=== PATIENT | female | born 1975 | race Caucasian/White ===

== ENCOUNTER 2022-08-19 12:02 | Emergency (ER) | payer OTHER ==
[~2022-08-19] VITALS: Ht 160 cm; Wt 61.2 kg
== END 2022-08-19 16:48 | disposition home or self-care (01) ==
LOC: ER 12:02
DX: R42 Dizziness and giddiness (principal)

== ENCOUNTER 2024-03-09 03:32 | Emergency (ER) | payer OTHER ==
[~2024-03-09] VITALS: Ht 160 cm; Wt 59.0 kg
[2024-03-09] MEDS ORDERED: KETOROLAC TROMETHAMINE 60 MG VIAL IM STA (04:23)
[2024-03-09] MEDS ORDERED: DEXAMETHASONE SODIUM PHOSPHATE 4 MG/ML VIAL IM STA (04:24)
[2024-03-09] MEDS ORDERED: ACETAMINOPHEN WITH CODEINE 1 UDTAB TABLET PO STA (04:24)
[2024-03-09] MEDS ORDERED: KETOROLAC TROMETHAMINE 30 MG VIAL IV STA (04:41)
[2024-03-09] MEDS ORDERED: CIPROFLOXACIN IN 5 % DEXTROSE 400 MG/200 ML PIGGYBAG IV STA (04:42)
[2024-03-09] MEDS ORDERED: CIPROFLOXACIN IN 5 % DEXTROSE 400 MG/200 ML PIGGYBAG IV ONE (04:49)
[2024-03-09] MEDS ORDERED: KETOROLAC TROMETHAMINE 30 MG VIAL ONE (04:49)
[2024-03-09 05:09] LABS: HEMATOCRIT 37.1 % (36.0-45.00); HEMOGLOBIN 12.7 g/dL (12.0-15.00); MEAN CELL VOLUME 88.5 fL (80.00-100.00); MEAN CORPUSCULAR HEMOGLOBIN 30.2 pg (27.00-32.0); MEAN CORPUSCULAR HGB CONC 34.2 g/dl (32.0-36.0); PLATELET COUNT 280 K/uL (150-450); RED CELL DISTRIBUTION WIDTH 13.9 % (11.5-14.5)
[2024-03-09 05:21] LABS: URINE APPEARANCE Turbid; URINE BILIRRUBIN Negative (NEGATIVE); URINE BLOOD Small; URINE COLOR Yellow; URINE GLUCOSE Negative (NEGATIVE); URINE KETONE Negative (NEGATIVE); URINE LEUKOCYTE Large; URINE NITRATE Negative; URINE PROTEIN Trace (NEGATIVE); URINE UROBILINOGEN 0.2 E.U./dl
[2024-03-09 05:27] LABS: CREATININE SERUM 0.74 mg/dL (0.55-1.02); GFR 83.41; POTASSIUM 3.99 mEq/L (3.5-5.1)
[2024-03-09 05:27] LABS: URINE BACTERIA 2422.9 uL (0.0-1933); URINE EPITHELIAL CELLS 8.5 uL (0.0-38.8); URINE RBC 1166.8 uL (0.0-20.8); URINE WBC 2889.1 uL (0.0-23.2)
== END 2024-03-09 06:32 | disposition home or self-care (01) ==
LOC: ER 03:32
DX: R30.0 Dysuria (principal); N30.90 Cystitis, unspecified without hematuria

== ENCOUNTER 2024-03-09 16:39 | Inpatient (IN) | payer OTHER ==
[~2024-03-09] VITALS: Ht 160 cm; Wt 61.2 kg
--- NOTE | 2024-03-09 16:49 | NUR ---
SE RECIBE PTE ALERTA Y ORIENTADA LA CUAL REFIERE VENIR POR INFECCION DE ORINA PERSISTENTE. PTE REFIERE AURA TOMADO ANTIBIOTICOS Y AUN NO A MOSTRADO MEJORIA. PTE CON RESULTADO DE CULTIOV DE ORINA A LA MANO. PTE REFIERE AURA VISITADO ER EN LA MADRUGADA DE HOY DONDE RECIBIO DOSIS DE CIPRO IV. SE MIDEN S/V A PPTE Y SE UBICA.
[2024-03-09] MEDS ORDERED: 0.9 % SODIUM CHLORIDE 1,000 ML IV SCH (20:00)
[2024-03-09] MEDS ORDERED: FAMOTIDINE/PF 20 MG in 0.9 % SODIUM CHLORIDE 8 ML IV PUSH SCH (20:03)
[2024-03-09] MEDS ORDERED: MEROPENEM 1,000 MG in 0.9 % SODIUM CHLORIDE 100 ML IV SCH (20:03)
[2024-03-09] MEDS ORDERED: ACETAMINOPHEN 500 MG GEL..CAP PO PRN (20:15)
[2024-03-09] MEDS ORDERED: KETOROLAC TROMETHAMINE 15 MG VIAL IU ONE (20:15)
[2024-03-09] MEDS ORDERED: FAMOTIDINE/PF 20 MG/2 ML VIAL ONE (21:46)
[2024-03-09] MEDS ORDERED: KETOROLAC TROMETHAMINE 30 MG VIAL ONE (21:46)
[2024-03-09 22:14] LABS: URINE APPEARANCE Clear; URINE BILIRRUBIN Negative (NEGATIVE); URINE BLOOD Negative; URINE COLOR Yellow; URINE GLUCOSE Negative (NEGATIVE); URINE KETONE Negative (NEGATIVE); URINE LEUKOCYTE Trace; URINE NITRATE Negative; URINE PROTEIN Negative (NEGATIVE); URINE UROBILINOGEN 0.2 E.U./dl
[2024-03-09 22:17] LABS: HEMOGLOBIN 12.7 g/dL (12.0-15.00); MEAN CELL VOLUME 89.8 fL (80.00-100.00); MEAN CORPUSCULAR HGB CONC 33.4 g/dl (32.0-36.0); PLATELET COUNT 282 K/uL (150-450); RED BLOOD COUNT 4.23 M/uL (4.00-6.00); RED CELL DISTRIBUTION WIDTH 14.1 % (11.5-14.5); URINE BACTERIA 37.7 uL (0.0-1933); URINE EPITHELIAL CELLS 3.7 uL (0.0-38.8); URINE RBC 5.4 uL (0.0-20.8); URINE WBC 74.3 uL (0.0-23.2)
[2024-03-09 22:20] LABS: ERYTHROCYTE SEDIMENTATION RATE 9 mm/hr
[2024-03-09 22:30] LABS: INR 1.02; PARTIAL THROMBOPLASTIN TIME 27.1 SECONDS (22.0-34.0); PROTHROMBIN TIME 11.1 SECONDS (9.0-11.5)
[2024-03-09 22:34] LABS: ALBUMIN 3.7 gm/dL (3.4-5.0); ALKALINE PHOSPHATASE 79 U/L (50-136); ALT/SGPT 16 U/L (12-78); ANION GAP 6 (10.0-20.0); AST/SGOT 12 U/L (15-37); BILIRUBIN TOTAL 0.28 mg/dL (0.3-1.2); BLOOD UREA NITROGEN 15 mg/dL (7-18); BUN CREA RATIO 19 (7.0-25.0); CALCIUM 9.1 mg/dL (8.5-10.1); CARBON DIOXIDE 28 mEq/L (21-32); CHLORIDE 112 mmol/L (98-107); CREATININE SERUM 0.79 mg/dL (0.55-1.02); GFR 77.35; GLOBULINA 3.8 G/DL (2.4-3.5); GLUCOSE FASTING 111 mg/dL (65-100); OSMOLALITY SERUM 285 MOSM/KG (275-295); POTASSIUM 3.76 mEq/L (3.5-5.1); SODIUM 142 mmol/L (136-145); TOTAL PROTEIN 7.5 gm/dL (6.4-8.2)
[2024-03-09 22:35] LABS: C-REACTIVE PROTEIN < 0.29 MG/DL (0.00-0.29)
[2024-03-09 23:46] VITALS: BP 86/58; O2SAT 97
[2024-03-10 04:24] VITALS: BP 95/64; O2SAT 97
[2024-03-10 08:00] VITALS: BP 94/66; O2SAT 98
[2024-03-10] MEDS ORDERED: MEROPENEM 500 MG in 0.9 % SODIUM CHLORIDE 50 ML IV SCH (12:00)
[2024-03-10 16:00] VITALS: BP 95/63; O2SAT 100
[2024-03-10] MEDS ORDERED: CIPROFLOXACIN IN 5 % DEXTROSE 200 ML IV SCH (17:00)
[2024-03-11] VITALS: BP 93/62; O2SAT 98
[2024-03-11 16:00] VITALS: BP 103/59; O2SAT 99
[2024-03-12 00:09] VITALS: BP 95/60; O2SAT 97
[2024-03-12 08:21] VITALS: BP 103/67; O2SAT 98
== END 2024-03-12 13:11 | disposition home or self-care (01) | DRG 690 ==
LOC: ER 16:39 → SEC-K 21:33 → SURG 21:33
PROVIDERS: General Practice; ADMIT Internal Medicine; ATTEND Internal Medicine
PROC: BW21ZZZ Computerized Tomography (CT Scan) of Abdomen and Pelvis (ICD-10-PCS; principal; 2024-03-09)
DX: N30.80 Other cystitis without hematuria (principal); Z16.23 Resistance to quinolones and fluoroquinolones; Z16.11 Resistance to penicillins; N20.0 Calculus of kidney; R11.0 Nausea; B96.20 Unspecified Escherichia coli [E. coli] as the cause of diseases classified elsewhere

== ENCOUNTER 2024-04-16 17:54 | Emergency (ER) | payer OTHER ==
[~2024-04-16] VITALS: Ht 160 cm; Wt 61.2 kg
[2024-04-16] MEDS ORDERED: LIDOCAINE HCL 1% 10ML VIAL PERCUT ONE (18:30)
[2024-04-16] MEDS ORDERED: TETANUS & DIPHTHERIA TOX,ADULT 0.5 ML VIAL IM ONE (18:30)
== END 2024-04-16 19:24 ==
LOC: ER 17:56
DX: S01.82XA Laceration with foreign body of other part of head, initial encounter (principal); W20.8XXA Other cause of strike by thrown, projected or falling object, initial encounter; Y93.89 Activity, other specified; Y92.89 Other specified places as the place of occurrence of the external cause

== ENCOUNTER 2024-04-22 20:40 | Emergency (ER) | payer OTHER ==
[~2024-04-22] VITALS: Ht 160 cm; Wt 61.2 kg
== END 2024-04-22 22:06 | disposition home or self-care (01) ==
LOC: ER 20:42
DX: Z48.02 Encounter for removal of sutures (principal)